=== PATIENT | female | born 1945 | race Caucasian/White ===

== ENCOUNTER 2023-10-30 10:37 | Emergency (ER) | payer OTHER, SELFPAY ==
[2023-10-30 10:41] VITALS: BP 136/98
[2023-10-30 13:30] LABS: % Basophils 0.2 % (0-2); % Immature Granulocytes 0.3 % (0-0.5); % Lymphocytes 7.7 % (20.5-51.1); % Monocytes 1.5 % (1.7-9.3); % Neutrophils 90.3 % (42.2-75.2); Absolute Lymphocytes 0.8 10^3/uL (1.2-3.4); Absolute Monocytes 0.2 10^3/uL (0.1-0.6); Absolute Neutrophils 9.4 10^3/uL (1.4-6.5); Hemoglobin 14.6 g/dL (12.0-16.0); Mean Corp Hgb Conc. 34.8 g/dL (33.0-37.0); Mean Corpuscular Hgb 32.5 pg (27.0-31.0); Mean Corpuscular Volume 93.5 fL (81.0-99.0); Mean Platelet Volume 8.9 fL (7.4-10.4); Nucleated Red Blood Cells % 0 %; Platelet Count 278 10^3/uL (130-400); Red Blood Cell Count 4.49 10^6/uL (4.20-5.40); Red Cell Dist. Width 13.2 % (11.5-14.5); White Blood Cell Count 10.4 10^3/uL (4.8-10.8)
[2023-10-30 13:46] LABS: Erythrocyte Sed Rate 7 mm/hour (0-20)
--- NOTE | 2023-10-30 14:18 | ED.GENMED ---
History of Present Illness
General
Chief Complaint: Swelling
Source: patient, records and spouse
Exam Limitations: none
Time Seen by Provider: 10/30/23 12:05
Nursing documentation reviewed up to this point in time: agreed with
Travel History
Have you had any contact with someone who has COVID-19?: No
Do you have any symptoms of coronavirus? Fever > 100 degrees, chills, cough, shortness of breath, sore throat, loss of taste or smell, muscle aches, or headache?: No
History of Present Illness
History of Present Illness:
Patient is a 78-year-old female who presents to the emergency department complaining of swelling of her right knee. Patient states over the past few days she has had pain in the knee and in the anterior part of the leg. Patient saw her doctor
yesterday out of concern for DVT. Was felt that it was the joint itself and not DVT and the patient was placed on low-dose steroids. However during the night the knee became much more swollen both anteriorly and posteriorly as well as increasing
pain into anteriorly. Patient could not sleep. Patient denies fever or chills. Patient denies rash. Patient is outside frequently. Patient denies any previous DVT or PE. Patient has a history of vein stripping secondary to varicose veins.
Past History
Past History
ED Past Medical History: Cancer (Skin), GERD, Hypothyroidism and Other (Trigeminal neuralgia)
Social History
Tobacco: Non-smoker
Review of Systems
Review of Systems
All Other Systems: ROS reviewed and negative except as documented in HPI and ROS
Constitutional: Denies fever or chills
Respiratory: Denies trouble breathing
Cardiac: Denies chest pain
Musculoskeletal: Reports joint pain and joint swelling
Skin: Denies rash
Hematologic/Lymphatic: Reports no symptoms
Phy Exam
Physical Exam
Physical Exam:
Physical Exam
General: mild distress, alert and appropriate, well nourished, well hydrated
HENT: Normocephalic, supple
Eyes: Clear sclera, conjuctiva without injection
Lungs: No respiratory distress, no stridor
Neuro: Alert and oriented x 3, CN II - XII intact, no motor focality, no cerebellar dysfunction
Skin: no rash
Psychiatric: well kept. interactive and cooperative
Extremities: No cyanosis. Right knee diffusely tender anteriorly with diffuse tenderness but no instability. Multiple superficial varicosities of bilateral lower extremities. Good and equal peripheral pulses.
Scores
Heart Failure Risk
Heart Failure Risk Score: Not Applicable
Heart Score for Chest Pain Patients
STEMI patient?: Not applicable
Withdrawal Assessment of Alcohol
Withdrawal Assessment Completed?: Not applicable
Course
Orders/Labs/Results
Orders:
Orders
10/30/23 13:04
Knee, Right 4 or More Views [CR Knee- Right 4 Or More View*] Urgent
Comment:
Reason For Exam: hemarthrosis and pain and swelling
US Periph Venous LOWER Ext RT Urgent
Comment:
Reason For Exam: pain swelling
10/30/23 13:12
Complete Blood Count/With Diff Urgent
Lyme Progressive Urgent
Sed Rate [Erythrocyte Sed Rate] Urgent
10/30/23 13:19
Lyme Progressive Urgent
10/30/23 13:31
Body Fluid Cell Count Urgent
What is the Body Fluid: joint
Date Specimen was Collected: 10/30/23
Time Specimen was Collected: 13:27
Comment: with DIFF
Body Fluid Crystals Urgent
What is the Body Fluid: joint
Date Specimen was Collected: 10/30/23
Time Specimen was Collected: 13:27
Fluid Culture with Gram Stain Urgent
OMAR Source: Joint Fluid
Specimen Description:
Date Specimen was Collected: 10/30/23
Time Specimen was Collected: 13:27
10/30/23 14:17
Negrito Wrap Right-Treatment ONCE
Abnormal Lab Results
10/30/23
13:12
MCH 32.5 H pg
(27.0-31.0)
Absolute Neuts (auto) 9.4 H 10^3/uL
(1.4-6.5)
Absolute Lymphs (auto) 0.8 L 10^3/uL
(1.2-3.4)
Neutrophils % 90.3 H %
(42.2-75.2)
Lymphocytes % 7.7 L %
(20.5-51.1)
Monocytes % 1.5 L %
(1.7-9.3)
10/30/23 13:12
Vital Signs
Initial and Last Documented VS:
Initial Vital Signs
Temp Pulse Resp BP Pulse Ox
98.2 F 65 16 136/98 98
10/30/23 10:41 10/30/23 10:41 10/30/23 10:41 10/30/23 10:41 10/30/23 10:41
Last Documented Vital Signs
Temp Pulse Resp BP Pulse Ox
98.2 F 65 16 136/98 98
10/30/23 10:41 10/30/23 10:41 10/30/23 10:41 10/30/23 10:41 10/30/23 12:00
Procedures
Incision/Drainage/Joint Aspiration
Right Knee:
Anethesia: 1% Lidocaine with Epi
Preparation: cleaned with Betadine
Type of procedure: aspiration
Nature of site: other (Right knee)
How much fluid was obtained?: number in mls (40)
Fluid description: bloody
Treatment: bandaid applied
*Radiology
Radiology exam reviewed: preliminary read by ED provider (Chronic degenerative changes) and radiology read reviewed (No DVT)
*Pulse Oximetry
Patient hypoxic: no
*EKG
Interpreted by ED Provider?: NA
*Oil Field Pumper Interpretation
Rate: Oil Field Pumper- N/A
*Critical Care Note
Total Time (30-74mins, 75-104mins- exclusive of procedures): Not Applicable
Update Note
Update Note:
Nothing grossly apparent. Patient is not anticoagulated. Will have the patient wrap the knee keep it elevated and follow-up with orthopedics.
ED Attending Note
-
Portions of this chart may have been created with voice recognition software.� Occasional wrong word or��sound alike� substitutions may have occurred due to the inherent limitations of voice recognition software.
Discharge Plan
Departure
Patient Disposition: Home (Routine Discharge)
Date of Disposition: 10/30/23
Time of Disposition: 15:01
Patient with high blood pressure during this ER visit?: No
Condition: Fair
Covid-19: Not Applicable
Discharge Problem:
Hemarthrosis of knee, right
Instructions: Swollen Joints (DC), RICE Therapy
Prescriptions:
New
ondansetron 8 mg tablet,disintegrating
8 mg PO TID PRN (Reason: nausea and vomiting) Qty: 15 0RF
oxycodone 5 mg tablet
5 mg PO Q4H PRN (Reason: Pain) Qty: 10 0RF
No Action
cetirizine [Aller-Huang] 10 mg Tablet
10 mg PO QPM
pentoxifylline 400 mg tablet extended release
400 mg PO BID
levothyroxine 100 mcg tablet
100 mcg PO DAILY
famotidine 20 mg tablet
20 mg PO BID
calcium carbonate 500 mg calcium (1,250 mg) Tablet
500 mg PO BID
tretinoin [Retin-A] 0.025 % Gel
1 applic TOPICAL QPM
desloratadine 5 mg tablet
5 mg PO DAILY
ipratropium bromide 21 mcg (0.03 %) spray,non-aerosol
1 spray INTRANASAL DAILY
Systane (PF) 0.4-0.3 % Dropperette
1 drp BOTH EYES BID
cholecalciferol (vitamin D3) [Vitamin D3] 25 mcg (1,000 unit) Tablet
25 mcg PO DAILY
estradiol 10 mcg tablet
10 mcg VAGINAL WE
krill oil 500 mg Capsule
500 mg PO DAILY
rizatriptan [Maxalt-PRIMARY MILL ROLLER] 10 mg tablet,disintegrating
10 mg PO ONCE PRN (Reason: migraine headache) Qty: 10 0RF
Referrals:
Byron Holley MD [Active] - Call in 1-3 days for appt
Harris Angel MD [Family Provider] - Follow up in 5-7 days
Interventions
Interventions:
*Risk Screen - Suicide Last Done: 10/30/23 10:41
*General Assessment Last Done: 10/30/23 10:41
*Neglect/Abuse Screening Last Done: 10/30/23 10:41
*ED COVID-19 Vaccine History Last Done: 10/30/23 14:15
ED- Cardiac Assessment Last Done: 10/30/23 12:00
ED- Pulmonary Assessment Last Done: 10/30/23 12:00
ED-Skin Assessment Last Done: 10/30/23 12:00
Discharge Date and Time
Print Language: OMANI
[2023-10-30 14:58] VITALS: BP 161/74
[2023-10-30 15:05] LABS: Body Fluid WBC 2327 /CUMM
[2023-10-30] MEDS: PERCOCET 5/325 1 TABLET PO (15:15)
[2023-10-30] MEDS: ZOFRAN ODT (ORALLY DISINTEGRATING) 8 MG PO (15:15)
[2023-10-30 15:28] LABS: Body Fluid Second Tech CMC
[2023-11-01 16:17] LABS: Lyme Antibody Screen, EIA Negative (Negative)
== END 2023-10-30 15:29 | disposition home or self-care (01) ==
LOC: EMR 10:37
PROVIDERS: EMERGENCY PHYSICIAN Emergency Medicine; FAMILY PHYSICIAN Family Medicine
DX: M25.061 Hemarthrosis, right knee (principal)
CPT/HCPCS: 99285; 20610; 73564; 85025; 85652; 86618; 87015; 87070; 87205; 89051; 89060; 93971

== ENCOUNTER → 2023-11-29 10:16 | Outpatient (REF) | payer OTHER, SELFPAY | LOC: HWRAD 10:16 | PROVIDERS: ATTENDING PHYSICIAN Obstetrics & Gynecology; FAMILY PHYSICIAN Family Medicine | DX: Z78.0 Asymptomatic menopausal state (principal); Z12.31 Encounter for screening mammogram for malignant neoplasm of breast | CPT/HCPCS: 77063; 77067; 77080 ==

== ENCOUNTER → 2024-10-30 11:25 | Outpatient (REF) | payer OTHER, SELFPAY | LOC: HWRAD 11:25 | PROVIDERS: ATTENDING PHYSICIAN Student in an Organized Health Care Education/Training Program | DX: R05.1 Acute cough (principal) | CPT/HCPCS: 71046 ==

== ENCOUNTER → 2025-07-17 11:19 | Outpatient (REF) | payer OTHER, SELFPAY | LOC: HWRAD 11:19 | PROVIDERS: ATTENDING PHYSICIAN Internal Medicine Critical Care Medicine; FAMILY PHYSICIAN Family Medicine | DX: J47.9 Bronchiectasis, uncomplicated (principal); J45.991 Cough variant asthma | CPT/HCPCS: 71250 ==